=== PATIENT | male | born 1980 | race Caucasian/White ===

== ENCOUNTER 2018-01-10 10:47 | Emergency (ER) | payer MEDICAID ==
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
[2018-01-10] MEDS: IPRATROPIUM/ALBUTEROL 3 ML NEB INH STA (12:46)
[2018-01-10 12:52] LABS: BASOPHILS # (AUTO) 0.1 10^3/uL (0.0-0.1); BASOPHILS % (AUTO) 0.7 %; EOSINOPHILS # (AUTO) 0.1 10^3/uL (0.0-0.7); EOSINOPHILS % (AUTO) 1.1 %; HGB - HEMOGLOBIN 16.9 g/dL (14.0-18.0); LYMPHOCYTES # (AUTO) 2.3 10^3/uL (1.5-3.5); LYMPHOCYTES % (AUTO) 27.6 %; MEAN CORPUSCULAR HEMOGLOBIN 31.7 pg (27.0-31.0); MEAN CORPUSCULAR HGB CONC 34.2 g/dL (32.0-36.0); MEAN CORPUSCULAR VOLUME 92.6 fL (80.0-94.0); MEAN PLATELET VOLUME 7.4 fL (7.4-11.4); MONOCYTES # (AUTO) 0.6 10^3/uL (0.0-1.0); MONOCYTES % (AUTO) 7.1 %; NEUTROPHILS # (AUTO) 5.3 10^3/uL (1.5-6.6); NEUTROPHILS % (AUTO) 63.5 %; PLT - PLATELET COUNT 299 10^3/uL (130-450); RED BLOOD COUNT 5.34 10^6/uL (4.70-6.10); RED CELL DISTRIBUTION WIDTH 13.4 % (12.0-15.0); WHITE BLOOD COUNT 8.3 x10^3/uL (4.8-10.8)
[2018-01-10 13:06] LABS: ALBUMIN 4.8 g/dL (3.2-5.5); ALBUMIN/GLOBULIN RATIO 1.7 (1.0-2.2); BILIRUBIN,TOTAL 0.9 mg/dL (0.2-1.0); CALCIUM 9.4 mg/dL (8.5-10.3); CREATININE 0.9 mg/dL (0.6-1.2); TOTAL PROTEIN 7.7 g/dL (6.7-8.2)
--- NOTE | 2018-01-10 13:27 | XRAY Report ---
Reason: chest pain Procedure Date: 01/10/2018 Accession Number: [id number] / [id number] Procedure: XR - Chest 1 View X-Ray CPT Code: 63948 FULL RESULT: EXAM: CHEST RADIOGRAPHY EXAM DATE: 01/10/2018 01:14 PM. CLINICAL HISTORY: Chest pain. COMPARISON: None. TECHNIQUE: 1 view. FINDINGS: Lungs/Pleura: No focal consolidation. No pleural effusion. No pneumothorax. Mediastinum: Within exam limitations, the cardiomediastinal contour is normal. Other: None. IMPRESSION: No acute findings. RADIA
[2018-01-10 14:07] VITALS: BP 133/78
== END 2018-01-10 14:07 | disposition home or self-care (01) ==
LOC: ED 10:47
DX: F41.0 Panic disorder [episodic paroxysmal anxiety] (principal); J45.20 Mild intermittent asthma, uncomplicated; F43.10 Post-traumatic stress disorder, unspecified
CPT/HCPCS: 36415; 71045; 80053; 83690; 84484; 85025; 93005; 94640; 94664; 99283

== ENCOUNTER 2022-10-28 13:54 | Emergency (ER) | payer MEDICAID ==
--- NOTE | 2022-10-28 15:39 | ED Physician Documentation ---
PD HPI ABD PAIN - Stated complaint Stated Complaint: BACK PX,NAUSEA,FEVER - Chief complaint Chief Complaint: Back Pain - History obtained from History obtained from: Patient - History of Present Illness Timing - onset: How many days ago (3-4) Timing - duration: Days (3-4) Timing - details: Abrupt onset, Still present, Waxing and waning Quality: Aching, Pain Location: Other (left flank/back) Radiation: Left flank Associated symptoms: Fever (for 1 day), Nausea, Vomiting, Diarrhea (for 1 day) Similar symptoms before: Has not had sx before Recently seen: Not recently seen Review of Systems Constitutional: reports: Fever, Chills, Myalgias (today) Nose: denies: Rhinorrhea / runny nose, Congestion Throat: denies: Sore throat Respiratory: denies: Cough GI: reports: Vomiting, Diarrhea Skin: denies: Rash Musculoskeletal: reports: Back pain PD PAST MEDICAL HISTORY - Past Medical History Cardiovascular: None Respiratory: None Endocrine/Autoimmune: None GI: None : None HEENT: None Psych: None Musculoskeletal: None Derm: None - Past Surgical History Past Surgical History: No - Present Medications Home Medications: Ambulatory Orders Medication Instructions Recorded Confirmed Clindamycin [Cleocin] 300 mg PO Q6H 5 Days capsule 06/02/15 Albuterol Sulf [Ventolin Hfa 1 - 2 puffs INH Q4HR PRN #1 inhaler 01/10/18 Inhaler] Diphenoxylate/Atropine [Lomotil] 1 each PO QID PRN #10 tablet 10/28/22 Meloxicam [Mobic] 7.5 mg PO BID 10 Days #20 tablet 10/28/22 Ondansetron Odt [Zofran] 4 mg TL Q6H PRN #10 tablet 10/28/22 tiZANidine [Zanaflex] 4 mg PO Q8H PRN #25 tablet 10/28/22 - Allergies Allergies/Adverse Reactions: Allergies Allergy/AdvReac Type Severity Reaction Status Date / Time Penicillins Allergy Hives Verified 10/28/22 14:24 bee sting Allergy Anaphylaxis Uncoded 10/28/22 14:24 - Social History Does the pt smoke?: Yes Smoking Status: Current every day smoker Does the pt drink ETOH?: Yes Does the pt have substance abuse?: No - Immunizations Immunizations are current?: Yes - POLST Patient has POLST: No PD ED PE NORMAL - Vitals Vital signs reviewed: Yes - General General: Alert and oriented X 3, Well developed/nourished - HEENT HEENT: Pharynx benign - Neck Neck: Supple, no meningeal sign, No adenopathy - Cardiac Cardiac: RRR (mild tachycardia), No murmur - Respiratory Respiratory: Clear bilaterally - Abdomen Abdomen: Normal bowel sounds, Soft, Non distended, No organomegaly, Other (tender without guarding nor percussion tnedenress lower left. There is back muscular/soft tissue tender left parathroacic area lower thoracic. No sores nor rash. ) - Back Back: No spinal TTP - Derm Derm: Normal color, Warm and dry, No rash - Extremities Extremities: No edema, No calf tenderness / cord - Neuro Neuro: Alert and oriented X 3, Normal speech Results - Vitals Vitals: Vital Signs - 24 hr 10/28/22 10/28/22 14:19 18:49 Temperature 36.7 C Heart Rate 103 H 100 Respiratory 15 20 Rate Blood Pressure 148/82 H 128/73 O2 Saturation 100 98 Oxygen O2 Source Room air - Labs Labs: Laboratory Tests 10/28/22 10/28/22 10/28/22 16:23 16:23 16:23 WBC 9.3 RBC 4.90 Hgb 15.0 Hct 44.1 MCV 90.0 MCH 30.6 MCHC 34.0 RDW 12.8 Plt Count 263 MPV 9.3 Neut # (Auto) 8.4 H Lymph # (Auto) 0.2 L [place] # (Auto) 0.6 Eos # (Auto) 0.0 Baso # (Auto) 0.0 Absolute Nucleated RBC 0.00 Nucleated RBC % 0.0 Sodium 133 L Potassium 3.4 L Chloride 102 Carbon Dioxide 25 Anion Gap 6.0 BUN 12 Creatinine 0.8 Estimated GFR (MDRD) 106 Glucose 101 Calcium 9.7 Total Bilirubin 0.5 AST 13 ALT 17 Alkaline Phosphatase 65 Total Protein 6.6 Albumin 4.4 Globulin 2.2 Albumin/Globulin Ratio 2.0 Lipase 17 Urine Color Urine Clarity Urine pH Ur Specific [place] Urine Protein Urine Glucose (UA) Urine Ketones Urine Occult Blood Urine Nitrite Urine Bilirubin Urine Urobilinogen Ur Leukocyte Esterase Ur Microscopic Review Urine Culture Comments Nasal Adenovirus (PCR) NOT DETECTED Nasal B. parapertussis DNA (PCR) NOT DETECTED Nasal Coronavir 229E PCR NOT DETECTED Nasal Coronavir HKU1 PCR NOT DETECTED Nasal Coronavir NL63 PCR NOT DETECTED Nasal Coronavir OC43 PCR NOT DETECTED Nasal Enterovir/Rhinovir PCR NOT DETECTED Nasal Influenza B PCR NOT DETECTED Nasal Influenza A PCR NOT DETECTED Nasal Parainfluen 1 PCR NOT DETECTED Nasal Parainfluen 2 PCR NOT DETECTED Nasal Parainfluen 3 PCR NOT DETECTED Nasal Parainfluen 4 PCR NOT DETECTED Nasal RSV (PCR) NOT DETECTED Nasal B.pertussis DNA PCR NOT DETECTED Nasal C.pneumoniae (PCR) NOT DETECTED Abiodun Human Metapneumo PCR NOT DETECTED Nasal M.pneumoniae (PCR) NOT DETECTED Nasal SARS-CoV-2 (PCR) DETECTED A 10/28/22 17:00 WBC RBC Hgb Hct MCV MCH MCHC RDW Plt Count MPV Neut # (Auto) Lymph # (Auto) [place] # (Auto) Eos # (Auto) Baso # (Auto) Absolute Nucleated RBC Nucleated RBC % Sodium Potassium Chloride Carbon Dioxide Anion Gap BUN Creatinine Estimated GFR (MDRD) Glucose Calcium Total Bilirubin AST ALT Alkaline Phosphatase Total Protein Albumin Globulin Albumin/Globulin Ratio Lipase Urine Color YELLOW Urine Clarity CLEAR Urine pH 8.0 H Ur Specific [place] 1.015 Urine Protein NEGATIVE Urine Glucose (UA) NEGATIVE Urine Ketones 15 H Urine Occult Blood NEGATIVE Urine Nitrite NEGATIVE Urine Bilirubin NEGATIVE Urine Urobilinogen 0.2 (NORMAL) Ur Leukocyte Esterase NEGATIVE Ur Microscopic Review NOT INDICATED Urine Culture Comments NOT INDICATED Nasal Adenovirus (PCR) Nasal B. parapertussis DNA (PCR) Nasal Coronavir 229E PCR Nasal Coronavir HKU1 PCR Nasal Coronavir NL63 PCR Nasal Coronavir OC43 PCR Nasal Enterovir/Rhinovir PCR Nasal Influenza B PCR Nasal Influenza A PCR Nasal Parainfluen 1 PCR Nasal Parainfluen 2 PCR Nasal Parainfluen 3 PCR Nasal Parainfluen 4 PCR Nasal RSV (PCR) Nasal B.pertussis DNA PCR Nasal C.pneumoniae (PCR) Abiodun Human Metapneumo PCR Nasal M.pneumoniae (PCR) Nasal SARS-CoV-2 (PCR) - Rads (name of study) abd/pelvic CT Relevant Findings:: Prelim report reviewed (no acute process. no kidney stones. ), EMP independent interpretation of test (no acute process. Possible mild wall edema lower colon and right mid small bowel. ) PD Medical Decision Making - ED course Complexity details: reviewed results, re-evaluated patient (he is feeling much better with some IV fluids and some IV meds of Zofran, toradol, and dilaudid. ), considered differential (few days of lower thoracic back pain with movement and spasms. No abrupt injury. Now with 1 day of fever, nausea, diarrhea and some abd pain. Concern for kidney infection or stone with now radiation to abd and general aches/malaise. Consider possible pyelo with infection vs muscular and flu-like. ), d/w patient Reviewed Lab Results: UA negative. CT ddi not show obvious cause such as appy, GB. abscesss, etc. His viral PCR is positive for COVID. Seems muscular back pain and spasms and could relate to COVID infection prescursor. Now with more GI symptoms from COVID. Departure - Departure Disposition: 01 Home, Self Care Clinical Impression: Back strain, Gastroenteritis due to COVID-19 virus Condition: Stable Record reviewed to determine appropriate education?: Yes Instructions: ED Spasm Back No Trauma, ED Nausea Vomiting Prescriptions: Diphenoxylate/Atropine [Lomotil] 1 each PO QID PRN #10 tablet PRN Reason: Diarrhea Meloxicam [Mobic] 7.5 mg PO BID 10 Days #20 tablet tiZANidine [Zanaflex] 4 mg PO Q8H PRN #25 tablet PRN Reason: Spasms Ondansetron Odt [Zofran] 4 mg TL Q6H PRN #10 tablet PRN Reason: Nausea / Vomiting Comments: Your viral panel test is positive for COVID. Your CT scan is showing some inflammation through part of the small intestine which goes along with the pains vomiting and diarrhea. Your symptoms can be caused from the viral illness and typically will last a few days. Hopefully the nausea and vomiting will be less as well as the pain. You may can still have some symptoms so I wrote prescription for Zofran for nausea and Lomotil for diarrhea. Regarding the back, no signs of other cause for it so presume a muscular back pain with spasms. No signs of kidney stones or kidney infection or other process to account for the pain. Heat and stretching for the back. Add tizanidine muscle relaxant as needed and anti-inflammatory meloxicam twice daily for the next 7 to 10 days. Add Tylenol if needed for pains. I sent your prescriptions to the [facility] pharmacy. Activity as tolerated. Discharge Date/Time: 10/28/22 18:49
[2022-10-28] MEDS ORDERED: ONDANSETRON 4 MG/2 ML VIAL IVP STA (16:01)
[2022-10-28] MEDS ORDERED: HYDROmorphone 1 MG/ML CARPUJECT IVP STA (16:01)
[2022-10-28] MEDS ORDERED: KETOROLAC 15 MG/ML VIAL IVP STA (16:01)
[2022-10-28] MEDS ORDERED: SODIUM CHLORIDE 0.9% 1,000 ML IV STA (16:01)
[2022-10-28 16:34] LABS: BASOPHILS % (AUTO) 0.2 %; EOSINOPHILS % (AUTO) 0.2 %; HCT - HEMATOCRIT 44.1 % (42.0-52.0); LYMPHOCYTES # (AUTO) 0.2 10^3/uL (1.5-3.5); LYMPHOCYTES % (AUTO) 1.8 %; MEAN CORPUSCULAR HEMOGLOBIN 30.6 pg (27.0-31.0); MEAN PLATELET VOLUME 9.3 fL (7.4-11.4); MONOCYTES # (AUTO) 0.6 10^3/uL (0.0-1.0); MONOCYTES % (AUTO) 6.8 %; NEUTROPHILS # (AUTO) 8.4 10^3/uL (1.5-6.6); NEUTROPHILS % (AUTO) 90.4 %; PLT - PLATELET COUNT 263 10^3/uL (130-450); RED CELL DISTRIBUTION WIDTH 12.8 % (12.0-15.0); WHITE BLOOD COUNT 9.3 x10^3/uL (4.8-10.8)
[2022-10-28 16:52] LABS: ALBUMIN 4.4 g/dL (3.2-5.5); BILIRUBIN,TOTAL 0.5 mg/dL (0.2-1.0); CALCIUM 9.7 mg/dL (8.5-10.3); CREATININE 0.8 mg/dL (0.6-1.3); POTASSIUM 3.4 mmol/L (3.5-4.5); TOTAL PROTEIN 6.6 g/dL (6.4-8.9)
[2022-10-28 17:11] LABS: BILIRUBIN,URINE NEGATIVE (NEGATIVE); GLUCOSE, URINE (UA) NEGATIVE (NEGATIVE); KETONES,URINE (UA) 15 mg/dL (NEGATIVE); LEUKOCYTE ESTERASE, URINE NEGATIVE (NEGATIVE); NITRITE,URINE NEGATIVE (NEGATIVE); OCCULT BLOOD,URINE NEGATIVE (NEGATIVE); PROTEIN,URINE NEGATIVE (NEGATIVE); UROBILINOGEN,URINE 0.2 (NORMAL) E.U./dL (NORMAL)
[2022-10-28 17:13] LABS: CLARITY,URINE CLEAR (CLEAR)
[2022-10-28 17:23] LABS: B. PARAPERTUSSIS- RESP PCR PAN NOT DETECTED; B. PERTUSSIS- RESP PCR PANEL NOT DETECTED; C. PNEUMONIAE- RESP PCR PANEL NOT DETECTED; CORONAVIRUS 229E-RESP PCR NOT DETECTED; CORONAVIRUS HKU1-RESP PCR NOT DETECTED; CORONAVIRUS NL63-RESP PCR NOT DETECTED; CORONAVIRUS OC43-RESP PCR NOT DETECTED; HUMAN METAPNEUMOVIRUS NOT DETECTED; INFLUENZA A- RESP PCR PANEL NOT DETECTED; INFLUENZA B - RESP PCR PANEL NOT DETECTED; M. PNEUMONIAE- RESP PCR PANEL NOT DETECTED; PARAINFLUENZA VIRUS 1 NOT DETECTED; PARAINFLUENZA VIRUS 2 NOT DETECTED; PARAINFLUENZA VIRUS 3 NOT DETECTED; PARAINFLUENZA VIRUS 4 NOT DETECTED; RHINOVIRUS/ENTEROVIRUS NOT DETECTED; RSV- RESP PCR PANEL NOT DETECTED
[2022-10-28 17:25] LABS: SARS-CoV-2 -RESP PCR PANEL DETECTED
--- NOTE | 2022-10-28 18:20 | CT Report ---
PROCEDURE: ABDOMEN/PELVIS W INDICATIONS: left flank pain, nausea/vomiting, feverish CONTRAST: 100 ml omni 300 TECHNIQUE: After the administration of intravenous contrast, 5 mm thick sections acquired from the diaphragms to the symphysis. 5 mm thick coronal and sagittal reformats were acquired. For radiation dose reducti on, the following was used: automated exposure control, adjustment of mA and/or kV according to rodrick ent size. COMPARISON: None. FINDINGS: Image quality: Excellent. Lung bases and heart: No pleural effusion. Liver: No solid mass. Gallbladder and biliary tree: No radiopaque stones or wall thickening. No biliary dilation. Spleen: No splenomegaly. Pancreas: No pancreatic ductal dilation. Adrenals: No adrenal nodule. Kidneys and ureters: No hydronephrosis. No renal cystic lesion which requires follow up. Small low-de nsity cyst in the right kidney. No solid mass. No kidney stones identified. Bowel and peritoneum: No bowel distension. No pathologic free fluid. No significant diverticulosis. N ormal appendix. Lymph nodes: No central or retroperitoneal adenopathy. Vessels: No infrarenal aortic aneurysm. PELVIS Reproductive organs: Unremarkable. Bladder: No bladder stone. Pelvic lymph nodes: No pelvic adenopathy by size criteria. Bones: No aggressive osseous abnormality. Other: No significant ventral or inguinal hernia. IMPRESSION: No acute abnormality demonstrated. No free fluid. No hydronephrosis. Reviewed by: Calderon Pickens MD on 10/28/2022 6:19 PM PDT Approved by: Calderon Pickens MD on 10/28/2022 6:19 PM PDT Station ID: [id number]
[2022-10-28 18:56] VITALS: BP 128/73; O2SAT 98
[2022-10-28] MEDS ORDERED: iohexoL-300 100 ML VIAL IVP ONE (19:08)
== END 2022-10-28 18:49 | disposition home or self-care (01) ==
LOC: ED 13:54
DX: S29.012A Strain of muscle and tendon of back wall of thorax, initial encounter (principal); X58.XXXA Exposure to other specified factors, initial encounter; K52.9 Noninfective gastroenteritis and colitis, unspecified; U07.1 COVID-19; F17.200 Nicotine dependence, unspecified, uncomplicated
CPT/HCPCS: 36415; 74177; 80053; 81003; 83690; 85025; 87633; 96374; 96375; 99284; J1170; Q9967; 81001; 87086